=== PATIENT | female | born 1940 | race Caucasian/White ===

== ENCOUNTER 2023-09-30 08:49 | Outpatient (AMB) | payer MEDICARE, SELFPAY ==
[2023-09-30 08:58] VITALS: BP 132/70; PULSE 75; O2SAT 96; BMI 20.4
--- NOTE | 2023-09-30 08:58 | A.OFFVIS_ITS ---
Vital Signs 09/30/23 08:58 Height 5 ft 8 in Weight 134 lb 7.712 oz BMI 20.4 BP 132/70 Blood Pressure Location Lt brachial Position Sitting Pulse 75 Pulse Source Pulse Oximeter Pulse Oximetry (%) 96 Oxygen Delivery Method Room Air Intake Visit Reasons: Brochiectasis Physician Chief Of Pathology Required: No Allergies No Known Allergies Allergy (Verified 09/30/23 09:01) HPI Comments Details: The patient is here for pulmonary evaluation. The patient is a 83 year woman with a chronic cough. She has been evaluated for many years by Pulmonary. The cough moderate severity. She is used inhalers in the past. Although the albuterol inhaler seems to be the most effective 1 she is use. She does not have a nebulizer. She does have an Acapella valve that she has use but has not noticed any significant improvement. She did have a CT scan of the chest at [facility] which I personally reviewed, demonstrating significant bronchiectatic changes primarily in the lingula and also the right middle lobe along with pulmonary nodules. Also some bronchiectatic changes and treating budding the right lower lobe. The patient did have sputum sent for AFB culture x3 but it was not identified. Therefore, she was sent over for bronchoscopy because it could not be done at [facility]. The patient states that she did spend time [place] when she was younger. 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 she was also told she had an abnormal chest x-ray suggesting latent tuberculosis. Ultimately though she did follow-up with Pulmonary and did have a interferon gamma releasing assay which was negative for tuberculosis. The patient denies any hemoptysis or weight loss or night sweats. Ultimately she feels that she has a very healthy woman otherwise. Therefore, based on her ongoing symptoms will be reasonable to perform a bronchoscopy. We did discuss the procedure. She is having cold-like symptoms right now with sore throat so therefore we would allow her to get better before performing the procedure. [facility] Medical History (Updated 10/02/23 @ 21:50 by Nicola Rizzo MD) Chronic cough Dysphagia Pulmonary nodules Bronchiectasis Social History (Updated 09/30/23 @ 09:03 by MALICK Stokes) Patient Tobacco Use Status: Never used Tobacco Review of Systems Const Denies fever(s) Eyes Reports no additional complaints ENT Denies change in voice and Reports dysphagia Card Denies chest pain Resp Reports chest congestion, Reports cough and Reports wheezing GI Reports dysphagia and Reports dyspepsia Musc Reports no additional complaints Skin/Breast Denies rash Neuro Reports no additional complaints Endo Reports no additional complaints Semaj/Lymph Denies lymphadenopathy Aller/Immun Reports wheezing Physical Exam Vital Signs: Last Vital Signs Pulse 75 09/30/23 08:58 BP 132/70 09/30/23 08:58 Pulse Ox 96 09/30/23 08:58 Oxygen Delivery Method Room Air 09/30/23 08:58 BMI result Body Mass Index 20.4 Const General: comfortable HEENT Head: Yes normocephalic Neck Neck: Yes supple Chest Chest palpation & inspection: normal inspection of the chest Resp Effort & Inspection: normal respiratory effort Auscultation: rhonchi and wheezes Cardio Heart sounds: S1 normal heart sound present and S2 normal heart sound present GI Palpation (GI): Soft to palpation Skin General skin exam: no rashes or lesions noted Extrem General: Yes no clubbing, cyanosis or edema Results Reviewed Results Reviewed: personally reviewed CT chest with beonchiectasis and pulmonary nodules personally reviewed all labs Assessment & Plan Assessment & Plan (1) Bronchiectasis: Code(s): J47.9 - Bronchiectasis, uncomplicated Category: Medical Qualifiers: Bronchiectasis type: uncomplicated Qualified Code(s): J47.9 - Bronchiectasis, uncomplicated (2) Pulmonary nodules: Code(s): R91.8 - Other nonspecific abnormal finding of lung field Category: Medical (3) Dysphagia: Code(s): R13.10 - Dysphagia, unspecified Category: Medical Qualifiers: Dysphagia type: unspecified Qualified Code(s): R13.10 - Dysphagia, unspecified (4) Chronic cough: Code(s): R05.3 - Chronic cough Category: Medical Plan Bronchoscopy continue KOMAL, spacer provided consider nebulizer therapy CPT with acapella valve barium swallow Orders: Orders FL barium swallow Today K21.9 - Gastro-esophageal reflux disease without esopha gitis, R13.10 - Dysphagia, unspecified Coding Level of Care Code New Pt Level 5 (59361) Diagnoses Bronchiectasis without complication J47.9 Bronchiectasis type: uncomplicated Pulmonary nodules R91.8 Dysphagia, unspecified type R13.10 Dysphagia type: unspecified Chronic cough R05.3 Time Spent (min) 60
== END 2023-09-30 09:45 | disposition home or self-care (01) ==
PROVIDERS: PCP Internal Medicine; Referring Provider Internal Medicine Critical Care Medicine; Visit Provider Hospitalist
DX: J47.9 Bronchiectasis, uncomplicated (principal); R91.8 Other nonspecific abnormal finding of lung field; R05.3 Chronic cough; R13.10 Dysphagia, unspecified
CPT/HCPCS: 99205

== ENCOUNTER → 2023-09-30 08:49 | Outpatient (BNVA) | payer MEDICARE, SELFPAY | PROVIDERS: PCP Internal Medicine; Referring Provider Internal Medicine Critical Care Medicine; Visit Provider Hospitalist | DX: J47.9 Bronchiectasis, uncomplicated (principal); R91.8 Other nonspecific abnormal finding of lung field; R13.10 Dysphagia, unspecified; R05.3 Chronic cough | CPT/HCPCS: 99202 ==

== ENCOUNTER 2023-10-20 06:38 | Day surgery (SDC) | payer MEDICARE, SELFPAY ==
[2023-10-18 08:41] VITALS: BMI 20.4
--- NOTE | 2023-10-19 09:49 | HO.ANESPROP2 ---
Documented by User: Pamela Tamayo NP 10/19/23 09:49 HPI - Anesthesia Eval Consult details Narrative: 83yo F for Bronchoscopy Fiberoptic [facility] Active Problems Active Problems: All Active Problems Chronic cough (Acute) Dysphagia (Acute) Pulmonary nodules (Acute) Bronchiectasis (Acute) Past Medical History Medical History (Updated 10/02/23 @ 21:50 by Nicola Rizzo MD) Chronic cough Dysphagia Pulmonary nodules Bronchiectasis Social History Social History (Updated 09/30/23 @ 09:03 by MALICK Stokes) Patient Tobacco Use Status: Never used Tobacco Use of substances other than those prescribed or required for medical reasons: No Are you DNR?: No Advance Directives: No Advance Directives Information Provided: Yes Meds Allergies Allergy/AdvReac Type Severity Reaction Status Date / Time No Known Allergies Allergy Verified 09/30/23 09:01 Home Medications ?Medication ?Instructions ?Recorded ?Confirmed ?Last Taken ?Type albuterol sulfate 90 mcg/actuation 1 puff inhalation Q4-6H 09/30/23 10/20/23 Unknown History aerosol inhaler pravastatin 20 mg tablet 20 mg PO DAILY 09/30/23 10/20/23 Unknown History Exam Height,Weight and Vital Signs: Height 5 ft 8 in Weight 60.781 kg Assessment and Plan Assessment Anesthesia Assessment: Chart Reviewed Documented by User: Miky Basurto MD 10/20/23 08:41 [facility] Past Medical History Medical History (Updated 10/02/23 @ 21:50 by Nicola Rizzo MD) Chronic cough Dysphagia Pulmonary nodules Bronchiectasis Family History Family history of problems with anesthesia: No Surgical History History of Problems with Anesthesia: No Social History Social History (Updated 09/30/23 @ 09:03 by MALICK Stokes) Patient Tobacco Use Status: Never used Tobacco Use of substances other than those prescribed or required for medical reasons: No Are you DNR?: No Advance Directives: No Advance Directives Information Provided: Yes Meds Allergies Allergy/AdvReac Type Severity Reaction Status Date / Time No Known Allergies Allergy Verified 09/30/23 09:01 Home Medications ?Medication ?Instructions ?Recorded ?Confirmed ?Last Taken ?Type albuterol sulfate 90 mcg/actuation 1 puff inhalation Q4-6H 09/30/23 10/20/23 Unknown History aerosol inhaler pravastatin 20 mg tablet 20 mg PO DAILY 09/30/23 10/20/23 Unknown History Exam Airway Mallampati Class: II TM Dist: >3cm Neck ROM: Full Loose/Missing/Broken Teeth: No Heart: rrr Other: cta Assessment and Plan Assessment Anesthesia Assessment: Anesthesia Plan Discussed Final Anesthetic Review Family History of Problems with Anesthesia: No History of Problems with Anesthesia: No NPO: Yes ASA Class: III Final Preanesthetic Review: No Changes in Pt Med Stat, Meds/Allgs Chart Reviewed, Consent Obtained/Reviewed and Anes Risks/Benef Reviewed Patient Risk: Intermediate Procedure Risk: Intermediate Anesthetic Plan Anesthetic Plan: GA Disposition: Standard PACU
[2023-10-20] VITALS (8 sets, daily range): BP systolic 128–173; BP diastolic 69–96; PULSE 61–76; RESP 14–18; TEMP 36.1–36.3; O2SAT 98–100; BMI 19.8
[2023-10-20] MEDS: Lactated Ringers 1,000 ML 100 ML IVCONT (07:56)
--- NOTE | 2023-10-20 08:15 | MHC.SHP ---
Pre-Procedural Eval Section A - 24 Hr Update-Section A only Date of Service: 10/20/23 The patient is an INPATIENT: No Changes since office visit: Yes Cold of Flu in the past 2 weeks The patient has been examined within 24 hours of the surgical procedure. The History & Physical has been completed within 30 days and I have reviewed it.: Yes Section B - Complete if H&P > 30 days Chief Complaint: Bronchiectasis with (acute) exacerbation Allergies: Allergies Allergy/AdvReac Type Severity Reaction Status Date / Time No Known Allergies Allergy Verified 09/30/23 09:01 Plan Diagnosis/Plan: Unchanged I have reviewed the history and physical and performed a pertinent physical examination on my patient. No changes have occurred unless specified. Time Spent With Patient Time: Total time managing care of this patient today ____ minutes.
--- NOTE | 2023-10-20 09:10 | PC.NURSE ---
[id number], notified dr. delgado anesthesiologist of dnr status and rings in place unable to remove. dnr form on front of chart. retext for dnr form not filled out, delay. [id number] to or
--- NOTE | 2023-10-20 09:38 | PM.OP ---
Brief Operative Note Date of Service: 10/20/23 Pre-op diagnosis: bronchiectasis, pulmonary nodules Post-op diagnosis: same Procedure: Bronchoscopy with washings and brushings Implants: Surgeon: Nicola Rizzo MD Anesthesia: GLMA Was an Assistant Track Coach used for this Procedure?: No Estimated blood loss (mL): 0 Pathology: other (right sided brushings and bilateral washings for cytology) Condition: stable Disposition: same day
--- NOTE | 2023-10-20 11:06 | OP_ITS ---
DATE OF SERVICE: 10/20/2023 SURGEON: Nicola Rizzo MD PREOPERATIVE DIAGNOSIS: POSTOPERATIVE DIAGNOSIS: PROCEDURE PERFORMED: Bronchoscopy with washings and brushings. ESTIMATED BLOOD LOSS: COMPLICATIONS: ANESTHESIA: LMA. ASSISTANTS: SPECIMENS: ASA: 3. PREOPERATIVE DIAGNOSES: Pulmonary nodules and bronchiectasis. POSTOPERATIVE DIAGNOSES: Pulmonary nodules and bronchiectasis. PROCEDURE IN DETAIL: The patient was adequately sedated, LMA in placed. The flexible digital bronchoscope was inserted via the LMA to the level of the larynx. The vocal cord was most symmetric into the midline. No lesions or masses noted. After administering lidocaine, the bronchoscope was then passed the vocal cords to the level of the trachea. The trachea appeared to be patent, open, and normal mucosa. The main [place] was sharp. After instilling the additional lidocaine, the bronchoscope was navigated to the entire tracheobronchial tree that was examined up to the subsegmental level. No endobronchial lesions or masses noted. No significant secretions noted. No bleeding noted. The bronchoscope was navigated to the right middle lobe where a microscopic and cytologic brush were introduced into that site and also into the right lower lobe area where she had most of the disease involvement. The micro and the cytology brushings were sent to the areas for further analysis. Bilateral washings were collected bilaterally. The patient did have significant mucous plugging throughout. The mucous plugs were mucoid in appearance. The bilateral washings were collected and sent for both cytology and microbiology. The bronchoscope was then removed. The total endoscopic time approximately 10 minutes. The patient tolerated procedure well. Vital signs were stable throughout the procedure. No complications noted and no bleeding noted. SERVICE DEVELOPER: None. MD VINCENZO Dowell/TOMY / [id number]
== END 2023-10-20 11:18 | disposition home or self-care (01) ==
PROVIDERS: PCP Internal Medicine; Visit Provider Hospitalist
PROC: 0BJ08ZZ Inspection of Tracheobronchial Tree, Via Natural or Artificial Opening Endoscopic (ICD-10-PCS; CPT 31622; principal; 2023-10-20 08:30)
DX: J47.9 Bronchiectasis, uncomplicated (principal); R91.8 Other nonspecific abnormal finding of lung field; R05.3 Chronic cough
CPT/HCPCS: 31623; 87070; 87102; 87107; 87116; 87205; 87206; 88112; J0171; J2371; J2704; J3010

== ENCOUNTER → 2023-10-20 06:38 | Outpatient (BNV) | payer MEDICARE, SELFPAY | PROVIDERS: PCP Internal Medicine; Visit Provider Hospitalist | DX: J47.1 Bronchiectasis with (acute) exacerbation (principal); R91.1 Solitary pulmonary nodule | CPT/HCPCS: 31623 ==